=== PATIENT | male | born 1960 | race Hispanic/Latino ===

== ENCOUNTER → 2019-03-21 | Outpatient (CLI) | payer MEDICARE | END | disposition home or self-care (01) | LOC: RAH 15:27 | PROVIDERS: ATTEND Internal Medicine | DX: K57.92 Diverticulitis of intestine, part unspecified, without perforation or abscess without bleeding (principal); M47.815 Spondylosis without myelopathy or radiculopathy, thoracolumbar region; Z90.49 Acquired absence of other specified parts of digestive tract | CPT/HCPCS: 74018 ==

== ENCOUNTER 2021-05-13 10:25 | Day surgery (SDC) | payer MEDICARE ==
[2021-05-06 11:11] LABS: PROTHROMBIN TIME 10.9 SEC (9.6-11.6)
[2021-05-06 11:12] LABS: PARTIAL THROMBOPLASTIN TIME 27.1 SEC (26.3-35.5)
[2021-05-06 11:16] LABS: BASOPHILS % (AUTO) 0.7 % (0.0-5.0); HEMATOCRIT 35.6 % (42-54); LYMPHOCYTES % (AUTO) 14.6 % (21.0-51.0); MEAN CORPUSCULAR HEMOGLOBIN 31.4 pg (27.0-33.0); MEAN CORPUSCULAR HGB CONC 32.9 g/dL (32.0-36.0); MEAN CORPUSCULAR VOLUME 95.4 fL (79-99); MONOCYTES % (AUTO) 5.3 % (3.0-13.0); NEUTROPHILS % (AUTO) 72.1 % (40.0-77.0); PLATELET COUNT (AUTO) 171 K/uL (130-400); RED BLOOD CELL COUNT(AUTO) 3.73 MIL/uL (4.50-6.20); RED CELL DISTRIBUTION WIDTH 13.5 % (11.0-15.5)
[2021-05-06 11:27] LABS: CREATININE 11.9 mg/dL (0.5-1.5)
[2021-05-10 11:53] VITALS: BP 202/85
[~2021-05-13] VITALS: Ht 167.6 cm; Wt 96.9 kg
[2021-05-13] VITALS (16 sets, daily range): BP systolic 139–181; BP diastolic 65–95
[~2021-05-13 10:25] MED LIST: 0.9% NACL 500ML IV.SOLN 500 ML IV SCH; ALLO100T PO; ATOR20TA65 PO; HYDR-4154 PO; LEVO112C4 PO; LOSA100T58 PO; RENVELA PO; SEVE800T27 PO
[2021-05-13] MEDS ORDERED: LACTATED RINGERS 1000ML 0 ML IV ONE (11:40)
[2021-05-13] MEDS: CEFAZOLIN SODIUM 1 GM VIAL IVP SCH ×2 (12:00→12:32)
[2021-05-13] MEDS ORDERED: BUPIVACAINE/PF 0.5% 30ML VIAL ONE (12:02)
[2021-05-13] MEDS ORDERED: ONDANSETRON 4MG INJ ONE (12:12)
[2021-05-13] MEDS ORDERED: PROPOFOL 10 MG/ML 20ML VIAL IV ONE (12:12)
[2021-05-13] MEDS ORDERED: LIDOCAINE PF 100MG/5ML (2%) SYRINGE 5ML ONE (12:12)
[2021-05-13] MEDS ORDERED: FENTANYL CITRATE PF 50 MCG/1 ML 2ML VIAL ONE (12:13)
[2021-05-13] MEDS ORDERED: ROCURONIUM 10MG/1ML SYR 10 MG/ML ML ONE (12:13)
[2021-05-13] MEDS ORDERED: EPHEDRINE SULFATE 50 MG/ML AMPULE ONE (12:57)
[2021-05-13] MEDS ORDERED: GLYCOPYRROLATE 1 MG/5 ML SYRINGE ONE (12:58)
[2021-05-13] MEDS ORDERED: NEOSTIGMINE 5MG/5ML SYR IV ONE (12:58)
== END 2021-05-13 15:15 | disposition home or self-care (01) ==
LOC: DAH 10:25
PROVIDERS: ATTEND Surgery
DX: K42.9 Umbilical hernia without obstruction or gangrene (principal); I12.0 Hypertensive chronic kidney disease with stage 5 chronic kidney disease or end stage renal disease; N18.6 End stage renal disease; G47.33 Obstructive sleep apnea (adult) (pediatric); E03.9 Hypothyroidism, unspecified; E66.01 Morbid (severe) obesity due to excess calories; Z79.82 Long term (current) use of aspirin; Z79.899 Other long term (current) drug therapy; Z20.822 Contact with and (suspected) exposure to COVID-19; Z68.36 Body mass index [BMI] 36.0-36.9, adult
CPT/HCPCS: 36415 ×2; 49585; 80048; 84132; 85025; 85610; 85730; 87635; 88302; 93005; A4215; A4221; A4222; A4223; A4452; A4663; A4930; A6260; C9803; J0690; J2001; J2405; J2704; J2710; J3010; J3490 ×3; J7040; J7120

== ENCOUNTER 2021-05-16 19:55 | Emergency (ER) | payer MEDICARE ==
[~2021-05-16] VITALS: Ht 167.6 cm; Wt 99.8 kg
[~2021-05-16 19:55] MED LIST changes: -0.9% NACL 500ML IV.SOLN 500 ML IV SCH
[2021-05-16 21:01] LABS: BASOPHILS % (AUTO) 0.5 % (0.0-5.0); EOSINOPHILS % (AUTO) 5.7 % (0.0-8.0); HEMATOCRIT 33.2 % (42-54); LYMPHOCYTES % (AUTO) 7.1 % (21.0-51.0); MEAN CORPUSCULAR HEMOGLOBIN 31.5 pg (27.0-33.0); MEAN CORPUSCULAR HGB CONC 33.4 g/dL (32.0-36.0); MEAN CORPUSCULAR VOLUME 94.3 fL (79-99); MONOCYTES % (AUTO) 7.3 % (3.0-13.0); NEUTROPHILS % (AUTO) 79.2 % (40.0-77.0); PLATELET COUNT (AUTO) 120 K/uL (130-400); RED BLOOD CELL COUNT(AUTO) 3.52 MIL/uL (4.50-6.20); RED CELL DISTRIBUTION WIDTH 13.1 % (11.0-15.5); WHITE BLOOD COUNT (AUTO) 5.8 K/uL (4.8-10.8)
[2021-05-16 21:16] LABS: INR 0.97 (0.85-1.15); PROTHROMBIN TIME 10.6 SEC (9.6-11.6)
[2021-05-16 21:17] LABS: CREATININE 7.6 mg/dL (0.5-1.5); PARTIAL THROMBOPLASTIN TIME 27.9 SEC (26.3-35.5); POTASSIUM 4.5 mmol/L (3.5-5.1)
[2021-05-16 21:22] LABS: ALBUMIN 3.7 g/dL (3.5-5.0); BILIRUBIN,TOTAL 0.4 mg/dL (0.2-1.0); MAGNESIUM 2.2 mg/dL (1.80-2.40); TOTAL PROTEIN, SERUM 7.9 g/dL (6.0-8.3)
[2021-05-16 22:20] LABS: MAGNESIUM 2.3 mg/dL (1.80-2.40); PHOSPHORUS 6.7 mg/dL (2.5-4.9)
[2021-05-16] MEDS ORDERED: SEVELAMER HCL 800 MG TABLET PO ONE (23:00)
[2021-05-16] MEDS ORDERED: ACETAMINOPHEN 500 MG TABLET PO ONE (23:00)
[2021-05-17] MEDS ORDERED: PROCHLORPERAZINE 10MG/2ML INJ ONE (00:18)
[2021-05-17] MEDS ORDERED: DiphenhydrAMINE HCL 50 MG/ML VIAL IV ONE (00:30)
[2021-05-17] MEDS ORDERED: PROCHLORPERAZINE EDISYLATE 5 MG/ML 2 ML VIAL IVP ONE (00:30)
[2021-05-17] MEDS ORDERED: PROCHLORPERAZINE 10MG/2ML INJ IV ONE (00:30)
[2021-05-17] MEDS ORDERED: KETOROLAC 15MG/ML VIAL (15MG/ML) IV ONE (00:30)
[2021-05-17 01:44] VITALS: BP 168/89
== END 2021-05-17 02:24 | disposition home or self-care (01) ==
LOC: EDH 19:55
DX: I12.0 Hypertensive chronic kidney disease with stage 5 chronic kidney disease or end stage renal disease (principal); N18.6 End stage renal disease; E83.39 Other disorders of phosphorus metabolism; E78.00 Pure hypercholesterolemia, unspecified; Z20.822 Contact with and (suspected) exposure to COVID-19; Z79.899 Other long term (current) drug therapy; Z99.2 Dependence on renal dialysis
CPT/HCPCS: 36415; 70450; 80053; 82140; 82310; 82330; 82550; 83605; 83735 ×2; 84100; 84484; 85025; 85610; 85730; 87040 ×2; 87635; 93005; 96374; 96375; 99285; C9803; J0780 ×2; J1200; J1885

== ENCOUNTER 2022-06-26 13:49 | Emergency (ER) | payer MEDICARE ==
[~2022-06-26] VITALS: Ht 165.1 cm; Wt 86.7 kg
[2022-06-26 14:02] VITALS: BP 139/72
[2022-06-26] MEDS ORDERED: CLINDAMYCIN 150 MG CAP PO ONE (18:30)
[2022-06-26] MEDS ORDERED: DIPH,PERTUSS(ACELL),TET VAC/PF 0.5 ML VIAL IM ONE (18:30)
[2022-06-26] MEDS ORDERED: TETANUS/DIPHTHERIA TOXOID [ADULT] 0.5 ML VIAL IM ONE ×2 (18:54→19:30)
[2022-06-26] MEDS ORDERED: CLIN-141 PO (19:13)
[2022-06-26] MEDS ORDERED: ACETAMINOPHEN WITH CODEINE 1 TAB TAB ONE (19:29)
[2022-06-26] MEDS ORDERED: ACETAMINOPHEN WITH CODEINE 1 TAB TAB PO ONE (20:00)
== END 2022-06-26 19:39 | disposition home or self-care (01) ==
LOC: EDH 13:49
DX: S51.831A Puncture wound without foreign body of right forearm, initial encounter (principal); I10 Essential (primary) hypertension; E78.00 Pure hypercholesterolemia, unspecified; W64.XXXA Exposure to other animate mechanical forces, initial encounter; Y93.89 Activity, other specified; Y92.89 Other specified places as the place of occurrence of the external cause; Y99.8 Other external cause status
CPT/HCPCS: 73090; 90471; 90714; 90715; 96372

== ENCOUNTER 2023-04-07 19:28 | Emergency (ER) | payer MEDICARE ==
[~2023-04-07] VITALS: Ht 165.1 cm; Wt 87.5 kg
[~2023-04-07 19:28] MED LIST changes: +CLIN-141 PO; -LOSA100T58 PO; +LOSA100T59 PO
[2023-04-07 21:49] VITALS: BP 136/73; PULSE 95; RESP 20
[2023-04-07] MEDS ORDERED: CEFAZOLIN SODIUM 2 GM VIAL IVPB STA (22:04)
[2023-04-07] MEDS ORDERED: DIPH,PERTUSS(ACELL),TET VAC/PF 0.5 ML VIAL IM ONE (22:30)
[2023-04-07] MEDS ORDERED: MORPHINE 4 MG SYG IVP ONE (22:30)
[2023-04-07 22:32] LABS: BASOPHILS # (AUTO) 0.05 K/uL (0.00-0.20); BASOPHILS % (AUTO) 0.7 % (0.0-5.0); EOSINOPHILS # (AUTO) 0.26 K/uL (0.00-0.70); EOSINOPHILS % (AUTO) 3.7 % (0.0-8.0); HEMATOCRIT 34.7 % (42-54); IMMATURE GRANULOCYTE ABSOLUTE 0.02 K/uL (0-1); LYMPHOCYTES # (AUTO) 0.5 K/uL (1.0-4.8); LYMPHOCYTES % (AUTO) 6.5 % (21.0-51.0); MEAN CORPUSCULAR HEMOGLOBIN 32.9 pg (27.0-33.0); MEAN CORPUSCULAR HGB CONC 34.3 g/dL (32.0-36.0); MEAN CORPUSCULAR VOLUME 95.9 fL (79-99); MONOCYTES # (AUTO) 0.5 K/uL (0.1-1.0); MONOCYTES % (AUTO) 6.7 % (3.0-13.0); NEUTROPHILS # (AUTO) 5.9 K/uL (1.8-7.7); NEUTROPHILS % (AUTO) 82.1 % (40.0-77.0); PLATELET COUNT (AUTO) 136 K/uL (130-400); RED BLOOD CELL COUNT(AUTO) 3.62 MIL/uL (4.50-6.20); RED CELL DISTRIBUTION WIDTH 13.5 % (11.0-15.5); WHITE BLOOD COUNT (AUTO) 7.1 K/uL (4.8-10.8)
[2023-04-07 22:41] LABS: CREATININE 6.6 mg/dL (0.5-1.5); POTASSIUM 3.5 mmol/L (3.5-5.1)
[2023-04-07 22:46] LABS: ALBUMIN 3.7 g/dL (3.5-5.0); BILIRUBIN,TOTAL 0.4 mg/dL (0.2-1.0); TOTAL PROTEIN, SERUM 7.8 g/dL (6.0-8.3)
[2023-04-07 22:49] LABS: WBC MORPHOLOGY CONSISTENT W/DIFF
[2023-04-07] MEDS ORDERED: MUPI22OI2 TP (23:42)
[2023-04-07] MEDS ORDERED: CEPH500B PO (23:42)
== END 2023-04-07 23:52 | disposition home or self-care (01) ==
LOC: EDH 19:28
DX: S61.211A Laceration without foreign body of left index finger without damage to nail, initial encounter (principal); E78.00 Pure hypercholesterolemia, unspecified; I10 Essential (primary) hypertension; W27.0XXA Contact with workbench tool, initial encounter; Y93.89 Activity, other specified; Y92.89 Other specified places as the place of occurrence of the external cause; Y99.8 Other external cause status
CPT/HCPCS: 99284; 96365; 96375; 80053; 85025; 36415; 90715; 73140; 90471; J2270; J0690; 96372

== ENCOUNTER 2023-11-03 10:19 | Emergency (ER) | payer MEDICARE ==
[~2023-11-03] VITALS: Ht 165.1 cm; Wt 83.9 kg
[~2023-11-03 10:19] MED LIST changes: +CEPH500B PO; -HYDR-4154 PO; +HYDR50TA37 PO; +MUPI22OI2 TP
[2023-11-03 11:04] VITALS: BP 168/87; PULSE 94; RESP 18; O2SAT 98
[2023-11-03 11:19] LABS: HEMATOCRIT 30.9 % (42-54); MEAN CORPUSCULAR HEMOGLOBIN 32.6 pg (27.0-33.0); MEAN CORPUSCULAR HGB CONC 34.3 g/dL (32.0-36.0); MEAN CORPUSCULAR VOLUME 95.1 fL (79-99); RED BLOOD CELL COUNT(AUTO) 3.25 MIL/uL (4.50-6.20); RED CELL DISTRIBUTION WIDTH 12.9 % (11.0-15.5); WHITE BLOOD COUNT (AUTO) 6.4 K/uL (4.8-10.8)
[2023-11-03 11:20] LABS: POTASSIUM 4.9 mmol/L (3.5-5.1)
[2023-11-03] MEDS: DEXAMETHASONE SOD PHOSPHATE 4 MG/ML 1ML VIAL IVP ONE (11:20)
[2023-11-03] MEDS: SOLU-MEDROL 125MG VIAL IVP ONE (11:20)
[2023-11-03] MEDS ORDERED: METH4TAB3 PO (12:06)
== END 2023-11-03 12:13 | disposition home or self-care (01) ==
LOC: EDH 10:19
DX: L40.9 Psoriasis, unspecified (principal); I10 Essential (primary) hypertension; E78.00 Pure hypercholesterolemia, unspecified; Z79.899 Other long term (current) drug therapy; Z98.890 Other specified postprocedural states
CPT/HCPCS: 99284; 96374; 96375; 80048; 85027; 36415; J1100; J2919

== ENCOUNTER 2024-05-12 22:11 | Emergency (ER) | payer MEDICARE ==
[~2024-05-12] VITALS: Ht 165.1 cm; Wt 88.5 kg
[~2024-05-12 22:11] MED LIST changes: +METH4TAB3 PO
--- NOTE | 2024-05-12 23:16 | HMCIMG ---
FOREARM 2VWS LT HISTORY: Swelling COMPARISON: 06/26/2022 TECHNIQUE: 2 images of left forearm were obtained. FINDINGS: There is no acute displaced fracture or dislocation. There is soft tissue swelling. Vascular calcifications are seen. Degenerative changes are seen. IMPRESSION: 1. Findings as described above.
--- NOTE | 2024-05-12 23:30 | HMCIMG ---
HAND 3+VWS LT HISTORY: Swelling COMPARISON: None TECHNIQUE: 3 images of left hand were obtained. FINDINGS: There is no acute displaced fracture or dislocation. Interphalangeal joint space narrowing and radiocarpal joint space narrowing are seen. Vascular calcifications are seen. Degenerative changes are seen. IMPRESSION: 1. Findings as described above.
--- NOTE | 2024-05-13 00:08 | HMCIMG ---
US VENOUS DOPPLER UNILATERAL HISTORY: Swelling COMPARISON: None TECHNIQUE: Left upper extremity venous Doppler ultrasound study was performed. FINDINGS: The left subclavian, axillary, and brachial veins are visualized. Normal flow with augmentation and compressibilities are demonstrated. Left cephalic vein is not well visualized limiting evaluation. Left basilic vein is patent. The study is limited due to patient's not able to cooperate with bandage in the left upper arm area. Patient declined to remove the bandage therefore evaluation of AV fistula is limited. IMPRESSION: 1. No evidence of deep venous thrombosis is seen.
[2024-05-13] MEDS: HYDROcodone/APAP 5/325 1 TAB TABLET PO ONE (00:52)
[2024-05-13] MEDS ORDERED: morPHINE 4 MG SYG IVP ONE (01:00)
[2024-05-13] MEDS ORDERED: ondanSETRON 4MG INJ IVP ONE (01:00)
--- NOTE | 2024-05-13 01:38 | ERN ---
ED Note History of Present Illness Stated Complaint: C/O PAIN WITH SWELLING TO LEFT HAND X 2 DAYS Chief Complaint: Hand Problem/Injury Time Seen by MD: 22:18 Time Seen by Midlevel: 22:18 Dictation: Patient is a 64-year-old male with a history of ESRD on dialysis TTS, hypertension who presents to the emergency department with complaints of left hand, left lower forearm swelling and pain onset two days ago. Patient denies any injuries. Reports he got dialysis today. Allergies: Coded Allergies: No Known Allergies (Verified Allergy, Unknown, 07/27/15) Home Meds Active Scripts Methylprednisolone (Medrol) 4 Mg Tab.ds.pk, 4 MG PO AD, #1 KIT 0 Refills Prov:MISTY ESPARZA Sr., MD 11/03/23 Mupirocin (Mupirocin Ointment) 2 % Oint, 1 APPL TP TID, #1 TUBE 0 Refills Prov:NOEMÍ GOODWIN [facility] 04/07/23 Cephalexin Monohydrate (Keflex) 500 Mg Cap, 500 MG PO TID for 7 Days, #21 CAP 0 Refills Prov:NOEMÍ GOODWIN [facility] 04/07/23 Clindamycin HCl (Clindamycin HCl) 300 Mg Capsule, 1 CAP PO QID for wound for 10 Days, #40 CAP 0 Refills Prov:NBA MORTON 06/26/22 Reported Medications Levothyroxine Sodium (Levothyroxine) 112 Mcg Capsule, 112 MCG PO AM, CAP 05/10/21 Atorvastatin Calcium (Atorvastatin Calcium) 20 Mg Tablet, 20 MG PO AM, TAB 05/10/21 Losartan Potassium (Losartan Potassium) 100 Mg Tablet, 100 MG PO AM, TAB 05/10/21 [Renvela] No Conflict Check, 1 TAB PO AM 05/10/21 Hydralazine HCl (Hydralazine HCl) 50 Mg Tablet, 50 MG PO AM, TAB 05/10/21 Allopurinol (Allopurinol) 100 Mg Tablet, 100 MG PO AM, TAB 05/10/21 Sevelamer HCl (Sevelamer HCl) 800 Mg Tablet, 800 MG PO TID, TAB 05/10/21 Past Medical History Past Medical History: Hypertension Surgical History: Other Surgical History Other: HERNIA REPAIR Family History: HTN Social History: Lives with family RN Note Reviewed/Agreed w/PFSH: Yes Review of System Dictation Constitutional: Negative for fever,chills, and weight loss Eyes: Negative for injury, pain,redness, and discharge ENT: Negative for injury,pain or swelling Cardiovascular: Negative for chest pain, palpitations, and edema Respiratory: Negative for shortness of breath, cough, and wheezing, Abdomen/GI: Negative for abdominal pain, nausea, vomiting, diarrhea, and constipation Back: Negative for injury and pain : Negative for injury, bleeding and discharge MS/Extremity: Positive for left arm pain and swelling Skin: Negative for rash, and discoloration Neuro: Negative for headache, weakness, numbness, tingling, and seizure Psych: Negative for suicide ideation, homicidal ideation, and hallucinations Initial Vital Sign VS Vital Signs Date Time Temp Pulse Resp B/P (MAP) Pulse Ox O2 Delivery O2 Flow Rate FiO2 05/12/24 22:12 98.4 85 20 188/71 97 Room Air 05/13/24 00:36 0 21 Physical Exam Dictation Vital Signs reviewed General Appearance: Alert, oriented x 3, no acute distress, well developed, nourished. Head and Face: non-traumatic. Eyes: PERRL, pink conjunctivas, eyelid no trauma, anterior chamber with arcus senilis. Ears: Pinnas intact and no signs of trauma or erythema ear canals clear and no discharge TM no erythema Nose: No discharge, no bleeding. Oropharynx: Mouth normal, tongue pink. pharynx clear,no erythema, tonsils no exudates, no abscesses noted, mucous membrane moist Neck: Supple, non-tender, no thyromegaly, no masses, no JVD, no bruits Breast:Deferred Chest:No tenderness, no crepitus, no paradoxical movement, no retractions Lungs:Clear, well-ventilated, symmetric, no rales, no wheezing, no rhonchi, no stridor, good breath sounds bilaterally Heart: Regular rate, regular rhythm, no murmur, no gallops Vascular: no peripheral edema, left radial pulse 3 + Abdomen: Soft, positive bowel sounds, nondistended, no guarding, nontender, no rebound, no masses no hepatomegaly, no splenomegaly, no Bernal's sign, no hernias. Rectal: Deferred Genital: Deferred Neurological: Normal speech, motor function intact, sensory function intact Musculoskeletal: Neck nontender, full range of motion, back nontender, full range of motion, Extremities: Left wrist and hand with minimal swelling, tender to palpation, no erythema, cap refill less than 2 seconds, CMS intact Skin: Color pink, dry, no turgor, no rash, no lacerations, no abrasions, no contusions. Lymphatic: Deferred Results (Laboratory/Radiology) Laboratory/Radiology REASON: swelling ORDERING PHYSICIAN: FABBY DENG IT INFRASTRUCTURE ARCHITECT PROCEDURE: VENOUS UNI - US VENOUS DOPPLER UNILATERAL US VENOUS DOPPLER UNILATERAL HISTORY: Swelling COMPARISON: None TECHNIQUE: Left upper extremity venous Doppler ultrasound study was performed. FINDINGS: The left subclavian, axillary, and brachial veins are visualized. Normal flow with augmentation and compressibilities are demonstrated. Left cephalic vein is not well visualized limiting evaluation. Left basilic vein is patent. The study is limited due to patient's not able to cooperate with bandage in the left upper arm area. Patient declined to remove the bandage therefore evaluation of AV fistula is limited. IMPRESSION: 1. No evidence of deep venous thrombosis is seen. REASON: swelling ORDERING PHYSICIAN: FABBY DENG IT INFRASTRUCTURE ARCHITECT PROCEDURE: HAND 3V LT - HAND 3+VWS LT HAND 3+VWS LT HISTORY: Swelling COMPARISON: None TECHNIQUE: 3 images of left hand were obtained. FINDINGS: There is no acute displaced fracture or dislocation. Interphalangeal joint space narrowing and radiocarpal joint space narrowing are seen. Vascular calcifications are seen. Degenerative changes are seen. IMPRESSION: 1. Findings as described above. REASON: swelling ORDERING PHYSICIAN: FABBY DENG IT INFRASTRUCTURE ARCHITECT PROCEDURE: FORARML - FOREARM 2VWS LT FOREARM 2VWS LT HISTORY: Swelling COMPARISON: 06/26/2022 TECHNIQUE: 2 images of left forearm were obtained. FINDINGS: There is no acute displaced fracture or dislocation. There is soft tissue swelling. Vascular calcifications are seen. Degenerative changes are seen. IMPRESSION: 1. Findings as described above. Labs Reviewed?: Yes ED Course ED Course Orders Procedure Category Date Status Time Forearm 2vws Lt RAD 05/12/24 Resulted 22:23 Hand 3+Vws Lt RAD 05/12/24 Resulted 22:23 Us Venous Doppler US 05/12/24 Resulted Unilateral 22:23 Hydrocodone/Apap PHA 05/12/24 Complete 5/325 ([place] 5/325mg) 22:30 Ondansetron 4mg Inj PHA 05/13/24 Complete (Zofran 4mg Inj) 01:00 Morphine 4mg Syg PHA 05/13/24 Complete (Morphine 4mg Syg) 01:00 Methylprednisolone PHA 05/13/24 Complete Succ 125mg (Solu-Medr 01:30 Thumb & Wrist [email or web address].ER 05/13/24 In Process Immobilizer 01:17 Current Medications Medications (Trade) Dose Ordered Sig/Rohith Route PRN Reason Start Time Stop Time Status Last Admin Dose Admin Acetaminophen/ Hydrocodone Bitart (NORco 5/325MG) 1 tab ONCE ONCE PO 05/12/24 22:30 05/12/24 22:31 DC 05/13/24 00:52 Methylprednisolone Sodium Succinate (Solu-medROL 125MG) 60 mg ONCE ONCE IV 05/13/24 01:30 05/13/24 01:31 DC Morphine Sulfate (morPHINE 4MG SYG) 4 mg ONCE ONCE IVP 05/13/24 01:00 05/13/24 00:37 DC Ondansetron HCl (zoFRAN 4MG INJ) 4 mg ONCE ONCE IVP 05/13/24 01:00 05/13/24 00:37 DC Vital Signs Date Time Temp Pulse Resp B/P (MAP) Pulse Ox O2 Delivery O2 Flow Rate FiO2 05/13/24 00:36 98.6 86 20 132/98 100 Room Air* 0 21 05/12/24 22:12 98.4 85 20 188/71 97 Room Air Medical Decision Making MDM Patient is a 64-year-old male with a history of ESRD on dialysis TTS, hypertension who presents to the emergency department with complaints of left hand, left lower forearm swelling and pain onset two days ago. Patient denies any injuries. Reports he got dialysis today. X-ray revealed no acute fractures, but showed some interphalangeal joint space narrowing and radiocarpal joint space narrowing ,ultrasound negative for DVT, patient splinted and instructed to follow up with PCP. Patient continues in no acute distress. Differential diagnosis: DVT, forearm fracture, wrist sprain, cellulitis Need for hospitalization: Patient does not meet criteria for hospitalization. There are no social concerns with this patient. DX & DISP Disposition: Discharge Departure Impression: Primary Impression: Arthritis of wrist, left Additional Impressions: Left arm swelling, Swelling of left hand Condition: Stable Additional Instructions: FOLLOW-UP WITH PRIMARY CARE PROVIDER IN 1 TO 2 DAYS. TAKE MEDICATIONS DIRECTED HERE IN THE EMERGENCY ROOM. OKAY TO CONTINUE HOME MEDICATIONS UNLESS OTHERWISE DISCUSSED DURING YOUR VISIT IN THE EMERGENCY ROOM TODAY. RETURN TO YOUR NEAREST EMERGENCY ROOM IF SYMPTOMS WORSEN OR IF THERE IS NO IMPROVEMENT. CALL 911 IF YOU NEED IMMEDIATE ASSISTANCE. TAKE TYLENOL OR MOTRIN [id number] NEEDED AND IF NO CONTRAINDICATIONS ARE PRESENT. INCREASE ORAL HYDRATION. A WOUND CULTURE OR URINE CULTURE WAS ORDERED HERE IN THE EMERGENCY ROOM DEPARTMENT PLEASE FOLLOW-UP WITH PRIMARY CARE PROVIDER AND ADVISE THEM TO GET REPEAT PORTS FROM OUR FACILITY. IF YOU HAD ANY ANILA WRAP/SPLINTS THAT WERE APPLIED HERE, PLEASE DO NOT REMOVE THEM UNTIL YOU SEE YOUR PRIMARY CARE OR SPECIALTY. Referrals: SHYLA SALGADO MD (PCP) Time of Disposition: 01:37 I have reviewed the case, and I agree with, Diagnosis and Plan FABBY DENG [facility] May 13, 2024 01:38
[2024-05-13] MEDS: Solu-medROL 125MG VIAL IV ONE (02:03)
--- NOTE | 2024-05-13 03:01 | NUR ---
RPEFABRICATED LEFT WRIST SPLINT APPLIED, TOELRATED WELL
[2024-05-13 03:07] VITALS: BP 142/74; PULSE 80; RESP 20; TEMP 98.6; O2SAT 97
== END 2024-05-13 03:12 | disposition home or self-care (01) ==
LOC: EDH 22:11
DX: M19.032 Primary osteoarthritis, left wrist (principal); R22.32 Localized swelling, mass and lump, left upper limb; I10 Essential (primary) hypertension; Z98.890 Other specified postprocedural states; Z79.899 Other long term (current) drug therapy
CPT/HCPCS: 99285; 73090; 73130; 93971; 96374; 29125; J2919

== ENCOUNTER 2024-06-06 16:03 | Emergency (ER) | payer MEDICARE ==
[~2024-06-06] VITALS: Ht 165.1 cm; Wt 92.2 kg
[2024-06-06 16:05] VITALS: BP 174/75; PULSE 84; RESP 16; TEMP 98
--- NOTE | 2024-06-06 16:14 | EKG ---
[facility] Test Date: 2024-06-06 Test Time: 16:12:26 Pat Name: YUIR RAYMUNDO Department: ED Room: Gender: M Shift Mgr: [id number] : 1960 Requested By: JOANN KAPOOR Order Number: [id number] Reading MD: Jose Francois Measurements Intervals [place] Rate: 80 P: 41 [place]: 153 QRS: -22 QRSD: 100 T: 103 QT: 434 QTc: 502 Interpretive Statements Sinus rhythm Left ventricular hypertrophy Abnormal T, consider ischemia, lateral leads Prolonged QT interval Compared to ECG 05/16/2021 20:15:17 T-wave abnormality now present Possible ischemia now present Prolonged QT interval now present Electronically Signed On 06-06-2024 19:56:59 PREVENTIVE MAINTENANCE ENGINEER by Jose Francois Please click the below link to view image of tracing.
[2024-06-06 16:21] LABS: BASOPHILS # (AUTO) 0.03 K/uL (0.00-0.20); BASOPHILS % (AUTO) 0.6 % (0.0-5.0); EOSINOPHILS # (AUTO) 0.22 K/uL (0.00-0.70); EOSINOPHILS % (AUTO) 4.5 % (0.0-8.0); HEMATOCRIT 27.7 % (42-54); IMMATURE GRANULOCYTE ABSOLUTE 0.01 K/uL (0-1); LYMPHOCYTES # (AUTO) 0.6 K/uL (1.0-4.8); LYMPHOCYTES % (AUTO) 11.5 % (21.0-51.0); MEAN CORPUSCULAR HGB CONC 33.2 g/dL (32.0-36.0); MEAN CORPUSCULAR VOLUME 99.3 fL (79-99); MONOCYTES # (AUTO) 0.3 K/uL (0.1-1.0); NEUTROPHILS # (AUTO) 3.7 K/uL (1.8-7.7); NEUTROPHILS % (AUTO) 76.2 % (40.0-77.0); PLATELET COUNT (AUTO) 89 K/uL (130-400); RED BLOOD CELL COUNT(AUTO) 2.79 MIL/uL (4.50-6.20); RED CELL DISTRIBUTION WIDTH 12.9 % (11.0-15.5); WHITE BLOOD COUNT (AUTO) 4.9 K/uL (4.8-10.8)
[2024-06-06 16:49] LABS: ALBUMIN 3.3 g/dL (3.5-5.0); BILIRUBIN,TOTAL 0.5 mg/dL (0.2-1.0); POTASSIUM 4.7 mmol/L (3.5-5.1); TOTAL PROTEIN, SERUM 6.7 g/dL (6.0-8.3)
[2024-06-06 16:56] LABS: CREATININE 11.4 mg/dL (0.5-1.3)
[2024-06-06] MEDS ORDERED: ondanSETRON ODT 4MG TAB SL STA (17:36)
--- NOTE | 2024-06-06 17:39 | ERN ---
ED Note History of Present Illness Stated Complaint: SOB,UNABLE TO KEEP ANYTHING DOWN Chief Complaint: Nausea,Vomiting,Diarrhea Time Seen by MD: 16:04 Time Seen by Midlevel: 16:10 Dictation: 64-year-old male with a history of hypertension, cholesterol and ESRD coming in complaining of vomiting abdominal cramping since this morning. No patient can not tell me how many times he has thrown up but says he takes keep anything down. Last dialysis was Thursday. Denies any fever, diarrhea, chest pain, short of breath. Allergies: Coded Allergies: No Known Allergies (Verified Allergy, Unknown, 07/27/15) Home Meds Active Scripts Methylprednisolone (Medrol) 4 Mg Tab.ds.pk, 4 MG PO AD, #1 KIT 0 Refills Prov:MISTY ESPARZA Sr., MD 11/03/23 Mupirocin (Mupirocin Ointment) 2 % Oint, 1 APPL TP TID, #1 TUBE 0 Refills Prov:NOEMÍ GOODWIN 04/07/23 Cephalexin Monohydrate (Keflex) 500 Mg Cap, 500 MG PO TID for 7 Days, #21 CAP 0 Refills Prov:NOEMÍ GOODWIN 04/07/23 Clindamycin HCl (Clindamycin HCl) 300 Mg Capsule, 1 CAP PO QID for wound for 10 Days, #40 CAP 0 Refills Prov:NBA MORTON 06/26/22 Reported Medications Levothyroxine Sodium (Levothyroxine) 112 Mcg Capsule, 112 MCG PO AM, CAP 05/10/21 Atorvastatin Calcium (Atorvastatin Calcium) 20 Mg Tablet, 20 MG PO AM, TAB 05/10/21 Losartan Potassium (Losartan Potassium) 100 Mg Tablet, 100 MG PO AM, TAB 05/10/21 [Renvela] No Conflict Check, 1 TAB PO AM 05/10/21 Hydralazine HCl (Hydralazine HCl) 50 Mg Tablet, 50 MG PO AM, TAB 05/10/21 Allopurinol (Allopurinol) 100 Mg Tablet, 100 MG PO AM, TAB 05/10/21 Sevelamer HCl (Sevelamer HCl) 800 Mg Tablet, 800 MG PO TID, TAB 05/10/21 Past Medical History Past Medical History: Diabetes-Type II, High Cholesterol, Hypertension, Renal Failure Additional Past Medical Hx: THYROID Surgical History: Other, LAVA Surgical History Other: HERNIA REPAIR Family History: HTN Social History: Lives with family Review of System Dictation Constitutional: Negative for fever,chills, and weight loss Eyes: Negative for injury, pain,redness, and discharge ENT: Negative for injury,pain or swelling Cardiovascular: Negative for chest pain, palpitations, and edema Respiratory: Negative for shortness of breath, cough, and wheezing, Abdomen/GI: Patient states has abdominal cramping and nausea and vomiting, no diarrhea, and no constipation Back: Negative for injury and pain : Negative for injury, bleeding and discharge MS/Extremity: Negative for injury and deformity Skin: Negative for rash, and discoloration Neuro: Negative for headache, weakness, numbness, tingling, and seizure Psych: Negative for suicide ideation, homicidal ideation, and hallucinations Review of Systems: was completed Initial Vital Sign VS Vital Signs Date Time Temp Pulse Resp B/P (MAP) Pulse Ox O2 Delivery O2 Flow Rate FiO2 06/06/24 16:05 98.1 84 16 174/75 97 Room Air 0 Physical Exam Dictation General: awake, alert, NAD Head/Face: Normocephalic, atraumatic Eyes: PERRL, EOMI, vision at baseline ENT: oral cavity clear, TMs clear, no signs of infection Neck: Trachea midline, supple, no nuchal rigidity Cardiovascular: RRR, normal S1/S2, No MRGs, no JVD Respiratory: Patient has mild crackles bilaterally, no respiratory distress, Abdomen: Soft, non-tender, non-distended, normal bowel sounds, no guarding or rebound. Skin: Warm, dry, normal turgor, no rash MS/Extremity: Pulses equal, no cyanosis, neurovascular intact, FROM Neuro: COAx4, GCS 15, strength 5/5, CN 2-12 intact, normal cerebellar exam, normal gait, Psych: Normal behavior, mood, and affect normal Results (Laboratory/Radiology) Laboratory/Radiology Laboratory Tests Test 06/06/24 16:16 White Blood Count 4.9 K/uL (4.8-10.8) Red Blood Count 2.79 MIL/uL (4.50-6.20) L Hemoglobin 9.2 g/dL (14.0-18.0) L Hematocrit 27.7 % (42-54) L Mean Corpuscular Volume 99.3 fL (79-99) H Mean Corpuscular Hemoglobin 33.0 pg (27.0-33.0) Mean Corpuscular Hemoglobin Concent 33.2 g/dL (32.0-36.0) Red Cell Distribution Width 12.9 % (11.0-15.5) Platelet Count 89 K/uL (130-400) L Mean Platelet Volume 10.7 fL (7.5-10.5) H Immature Granulocyte % (Auto) 0.2 % (0-1) Neutrophils (%) (Auto) 76.2 % (40.0-77.0) Lymphocytes (%) (Auto) 11.5 % (21.0-51.0) L Monocytes (%) (Auto) 7.0 % (3.0-13.0) Eosinophils (%) (Auto) 4.5 % (0.0-8.0) Basophils (%) (Auto) 0.6 % (0.0-5.0) Neutrophils # (Auto) 3.7 K/uL (1.8-7.7) Lymphocytes # (Auto) 0.6 K/uL (1.0-4.8) L Monocytes # (Auto) 0.3 K/uL (0.1-1.0) Eosinophils # (Auto) 0.22 K/uL (0.00-0.70) Basophils # (Auto) 0.03 K/uL (0.00-0.20) Absolute Immature Granulocyte (auto 0.01 K/uL (0-1) Nucleated Red Blood Cells 0.0 % (0.0-0.19) Sodium Level 137 mmol/L (136-145) Potassium Level 4.7 mmol/L (3.5-5.1) Chloride Level 99 mmol/L (101-111) L Carbon Dioxide Level 27 mmol/L (21-32) Blood Urea Nitrogen 62 mg/dL (7-18) H Creatinine 11.4 mg/dL (0.5-1.3) *H Glomerular Filtration Rate Calc 5 mL/min (>90) Random Glucose 83 mg/dL (70-105) Total Calcium 6.9 mg/dL (8.5-10.1) L Total Bilirubin 0.5 mg/dL (0.2-1.0) Aspartate Amino Transf (AST/SGOT) 10 U/L (10-37) Alanine Aminotransferase (ALT/SGPT) 13 U/L (12-78) Alkaline Phosphatase 66 U/L (50-136) B-Type Natriuretic Peptide 1080 pg/mL (0-100) H Total Protein 6.7 g/dL (6.0-8.3) Albumin 3.3 g/dL (3.5-5.0) L Lipase 35 U/L (16-77) Labs Reviewed?: Yes EKG Comment: Date:06/06/24 Time:1612 Ventricular rate:80 CO interval:153 QRS duration:-22 QT/QTc:434/502 EKG interpretation: Sinus rhythm, left ventricular hypertrophy, abnormal T, consider ischemia, lateral leads. Prolonged QT interval Reviewed by ED Attending ED Course ED Course Orders Procedure Category Date Status Time Cbc With Differential LAB 06/06/24 Complete 16:09 Comprehensive LAB 06/06/24 Complete Metabolic Panel 16:09 12 Lead Ekg Tracing- EKG 06/06/24 Resulted Technical 16:09 Lipase LAB 06/06/24 Complete 16:09 Ondansetron Odt 4mg PHA 06/06/24 Complete Tab (Zofran 4mg Odt) 17:36 Dicyclomine Hcl PHA 06/06/24 Complete (Bentyl 20mg Tab) 19:27 B-Type Natriuretic LAB 06/06/24 Complete Peptide 19:46 Current Medications Medications (Trade) Dose Ordered Sig/Rohith Route PRN Reason Start Time Stop Time Status Last Admin Dose Admin Dicyclomine HCl (Bentyl 20mg Tab) 20 mg ONCE STAT PO 06/06/24 19:27 06/06/24 19:30 DC Ondansetron HCl (zoFRAN 4MG ODT) 4 mg ONCE STAT SL 06/06/24 17:36 06/06/24 17:37 DC Vital Signs Date Time Temp Pulse Resp B/P (MAP) Pulse Ox O2 Delivery O2 Flow Rate FiO2 06/06/24 16:05 98.1 84 16 174/75 97 Room Air 0 Medical Decision Making MDM MDM: 64-year-old male with a history of hypertension, cholesterol and ESRD coming in complaining of vomiting abdominal cramping since this morning. No patient can not tell me how many times he has thrown up but says he cant keep anything down. Last dialysis was Thursday. Denies any fever, diarrhea, chest pain. On physical exam patient has mild crackles, however patient does not have any work of breathing, is not tachypneic. Abdomen is soft nondistended, no te nderness to palpation. At 1948 went out to triage lobby to speak to the patient regarding lab findings, and now is complaining of shortness a breath. Added a BNP and chest x-ray and swabs. At 8:40 p.m. x-ray tech called the patient's name out in triage, pre sales technical engineer called knee out in triage for swabbing and I myself went to the lobby to look for him and patient was not in lobby. Patient eloped without notifying anybody in the emergency room. Differential diagnosis: Gastroenteritis, electrolyte abnormalities, fluid overload Rationale: Tests considered and ordered secondary to shared decision making include: Previous outside records reviewed: Old ER visits. Risk of complication and/or morbidity or mortality of patient management: None Medications-Per medication reconciliation Need for hospitalization: Patient does not meet criteria for hospitalization. Need for emergency major/minor surgery: No There are no social concerns with this patient. Prescription drug management Prescriptions will include symptomatic care Patient's prior external medical records from other ER visits were reviewed by me as indicated. Prior testing and results from previous visits were reviewed. Prior tests were taken into account with medical decision making and resource utilization, independent historian/historians were used to obtain complete medical history. I independently interpreted the test that were performed, results were reviewed by me and considered findings on radiology if ordered. Medical management and examination interpretation discussions were had by me with other qualified healthcare professionals as indicated for the patient's care. DX & DISP Disposition: Discharge Departure Impression: Primary Impression: Eloped from emergency department Additional Impressions: Fluid overload, ESRD (end stage renal disease) Condition: Stable Referrals: SHYLA SALGADO MD (PCP) Time of Disposition: 08:40 I have reviewed the case, and I agree with, Diagnosis and Plan I performed this substantive portion of this visit. I have reviewed and personally made and approve the management plan that is documented in the note by myself or the JAVAD. I acknowledge full responsibility for the patient's management plan. JOANN KAPOOR NP Jun 06, 2024 17:39 WALTER WASSERMAN MD Jun 07, 2024 10:20
[2024-06-06] MEDS ORDERED: DICYCLOMINE HCL 20 MG TAB PO STA (19:27)
--- NOTE | 2024-06-06 20:45 | NUR ---
PER JOANN KAPOOR RETAIL SALES ASSOCIATE BILINGUAL, PATIENT ELOPED. PATIENT NOT FOUND IN ER LOBBY
== END 2024-06-06 20:46 | disposition left against medical advice (07) ==
LOC: EDH 16:03
DX: E87.70 Fluid overload, unspecified (principal); I12.0 Hypertensive chronic kidney disease with stage 5 chronic kidney disease or end stage renal disease; E11.22 Type 2 diabetes mellitus with diabetic chronic kidney disease; N18.6 End stage renal disease; E78.00 Pure hypercholesterolemia, unspecified; Z98.890 Other specified postprocedural states
CPT/HCPCS: 36415; 80053; 83690; 83880; 85025; 93005; 99284

== ENCOUNTER → 2024-06-10 | Outpatient (CLI) | payer MEDICARE ==
--- NOTE | 2024-06-10 11:05 | HMCIMG ---
CHEST 2VWS HISTORY: End-stage renal disease COMPARISON: 03/06/2021 FINDINGS: Frontal and lateral projections of the chest were obtained. There are prominent interstitial markings with possible superimposed infiltrates. The heart is borderline enlarged. Aortic calcifications are seen. Degenerative changes are seen of the thoracolumbar spine. IMPRESSION: 1. There are prominent interstitial markings.
== END | disposition home or self-care (01) ==
LOC: RAH 10:15
PROVIDERS: ATTEND Internal Medicine
DX: J98.4 Other disorders of lung (principal); I12.0 Hypertensive chronic kidney disease with stage 5 chronic kidney disease or end stage renal disease; N18.6 End stage renal disease; R06.09 Other forms of dyspnea; M47.815 Spondylosis without myelopathy or radiculopathy, thoracolumbar region; Z99.2 Dependence on renal dialysis
CPT/HCPCS: 71046

== ENCOUNTER → 2024-06-20 | Outpatient (CLI) | payer MEDICARE ==
--- NOTE | 2024-06-20 10:39 | HMCIMG ---
US ABDOMINAL COMPLETE HISTORY: Nausea and vomiting COMPARISON: None TECHNIQUE: Multiple transverse and longitudinal ultrasound images of the abdomen were obtained. FINDINGS: Abdominal aorta, inferior vena cava and pancreas not well seen due to overlying bowel gas. There is cystic structure with septation noted in the pancreatic tail area measuring 7.8 x 10.3 x 10.2 cm may be related to cystic neoplasm. Liver measures 17.5 cm. There are multiple hepatic cysts with the largest measuring 4 x 3.8 x 3.1 cm. Liver is echogenic consistent with liver parenchymal disease. Gallbladder has been removed. Common duct is not seen due to overlying bowel gas. Cystic changes of both kidneys are noted. Accurately measurement for the kidneys cannot be obtained due to cystic changes. The spleen is grossly unremarkable. IMPRESSION: 1. Post cholecystectomy. Common duct is not well seen limiting evaluation. 2. Polycystic kidney disease..
== END | disposition home or self-care (01) ==
LOC: RAH 08:07
PROVIDERS: ATTEND Internal Medicine
DX: N28.1 Cyst of kidney, acquired (principal); K76.89 Other specified diseases of liver; R11.2 Nausea with vomiting, unspecified; Z90.49 Acquired absence of other specified parts of digestive tract
CPT/HCPCS: 76700